=== PATIENT | female | born 2000 | race Caucasian/White ===

== ENCOUNTER 2021-02-03 04:40 | Inpatient (IN) | payer BC ==
[2021-02-03 05:00] VITALS: BMI 28.0
[2021-02-03] MEDS ORDERED: hydrALAZINE 20 MG/ML VIAL SLOW IVP PRN ×3 (06:44→17:36)
[2021-02-03] MEDS ORDERED: Promethazine HCl 25 MG/ML VIAL IM PRN ×2 (06:44→17:38)
[2021-02-03] MEDS ORDERED: Ondansetron PF 4 MG/2 ML Vial IVP PRN ×3 (06:44→17:38)
[2021-02-03] MEDS ORDERED: Lidocaine 1% (PF) 30 ML VIAL SC PRN (06:44)
[2021-02-03] MEDS ORDERED: NS w/ Oxytocin 30 units 500 ML IVPB SCH (06:45)
[2021-02-03] MEDS ORDERED: NS w/ Oxytocin 30 units 500 ML IV SCH ×2 (06:45→17:45)
[2021-02-03] MEDS ORDERED: Lactated Ringer's 1,000 ML IV SCH (06:45)
[2021-02-03] MEDS: Lactated Ringer's 1,000 ML IV SCH ×2 (07:19→13:19)
[2021-02-03 08:33] LABS: Hemoglobin 13.1 g/dL (12.0-15.5); Mean Corpuscular HGB CONC 35.9 g/dL (32.0-36.0); Mean Corpuscular Hemoglobin 31.1 pg (27.0-33.0); Mean Corpuscular Volume 86.7 fl (81.6-98.3); Mean Platelet Volume 12.6 fl (7.4-10.4); Platelet Count 194 10x3/uL (150-450); RBC Distribution Width 12.2 % (11.5-14.5); Red Blood Cell (RBC) Count 4.21 10x6/uL (3.90-5.03); White Blood Cell (WBC) Count 18.4 10x3/uL (3.5-10.5)
[2021-02-03 11:13] LABS: HIV (1/2) Antibody/Antigen Non-Reactive (NonReactive); HIV 1/2 INDEX 0.07 S/CO (<1.00)
[2021-02-03 14:06] LABS: SARS-CoV-2 NAA Rapid Test Not Detected (NotDetected)
[2021-02-03] MEDS ORDERED: Bicitra 30 ML UDCUP PO PRN (14:49)
[2021-02-03] MEDS ORDERED: Famotidine/PF 20 mg/2ml Vial SLOW IVP PRN (14:49)
[2021-02-03] MEDS ORDERED: Famotidine/PF 20 mg/2ml Vial ONE (14:57)
[2021-02-03] MEDS ORDERED: Azithromycin 500 MG VIAL ONE (14:58)
[2021-02-03] MEDS ORDERED: Azithromycin 500 MG in Sodium Chloride 0.9% 250 ML 250 ML IVPB SCH (15:00)
[2021-02-03] MEDS ORDERED: CEFAZOLIN 2 GM in Premix Bag 1 BAG IVPB SCH (15:00)
[2021-02-03] MEDS ORDERED: Morphine PF 10 MG/10 ML VIAL ONE (15:44)
[2021-02-03] MEDS ORDERED: ePHEDrine Sulfate 50 MG/10 ML VIAL ONE (15:45)
[2021-02-03] MEDS ORDERED: Fentanyl 100 MCG/2 ML VIAL ONE (15:45)
[2021-02-03] MEDS ORDERED: Oxytocin 10 UNITS/ML VIAL ONE (15:53)
[2021-02-03] MEDS ORDERED: Phenylephrine 40 MG/NS 250 ML 250 ML ONE ×2 (15:54)
[2021-02-03] MEDS ORDERED: PHENYLEPHRINE-NS 100 MCG/ML 10 ML SYRINGE ONE (16:39)
[2021-02-03] MEDS ORDERED: Ondansetron PF 4 MG/2 ML Vial ONE (16:39)
[2021-02-03] MEDS ORDERED: Ketorolac Tromethamine 30 MG/ML VIAL ONE (17:06)
[2021-02-03 17:10] LABS: RapidComm Collect By NURSE; pH (Cord, venous) 7.352 (7.250-7.350)
[2021-02-03 17:11] LABS: RapidComm Collect By NURSE
[2021-02-03] MEDS ORDERED: diphenhydrAMINE 25 MG CAP PO PRN (17:36)
[2021-02-03] MEDS ORDERED: Acetaminophen 325 MG TAB PO PRN (17:36)
[2021-02-03] MEDS ORDERED: Methylergonovine 0.2 MG/ML VIAL IM PRN (17:36)
[2021-02-03] MEDS ORDERED: Misoprostol 200 MCG TAB PR PRN (17:36)
[2021-02-03] MEDS ORDERED: Simethicone Chewable 80 MG TAB PO PRN (17:36)
[2021-02-03] MEDS ORDERED: Lanolin Ointment 7 GM TUBE TOP PRN (17:36)
[2021-02-03] MEDS ORDERED: Boostrix 0.5 ML (Tdap) VIAL IM ONE (17:36)
[2021-02-03] MEDS ORDERED: Ondansetron HCl/PF 4 MG/2 ML Vial IVP PRN (17:38)
[2021-02-03] MEDS ORDERED: diphenhydrAMINE 50 MG/ML VIAL IVP PRN (17:38)
[2021-02-03] MEDS ORDERED: Naloxone HCl 0.4 mg/ml Vial IV PRN (17:38)
[2021-02-03] MEDS ORDERED: Naloxone HCl 0.4 mg/ml Vial IVP PRN ×2 (17:38)
[2021-02-03] MEDS ORDERED: Fentanyl 100 MCG/2 ML VIAL SLOW IVP PRN (17:38)
[2021-02-03] MEDS ORDERED: Hydrocerin (Eucerin) Cream 120 gm Jar TOP PRN (17:38)
[2021-02-03] MEDS ORDERED: HYDROmorphone 2 MG/ML VIAL SLOW IVP PRN (17:38)
[2021-02-03] MEDS ORDERED: Promethazine HCl 25 MG SUPP PR PRN (17:38)
[2021-02-03] MEDS ORDERED: Meperidine HCl/PF 25 MG/ML VIAL SLOW IVP PRN (17:38)
[2021-02-03] MEDS ORDERED: Communication Order-Pharmacy FS SCH (17:45)
[2021-02-03] MEDS ORDERED: Meperidine HCl/PF 25 MG/ML VIAL ONE (19:33)
[2021-02-03] MEDS: Ferrous Sulfate 325 MG TAB PO SCH (21:58)
[2021-02-03] MEDS: Ketorolac Tromethamine 30 MG/ML VIAL IVP PRN (23:40)
[2021-02-04] MEDS: Ketorolac Tromethamine 30 MG/ML VIAL IVP PRN ×2 (05:28→14:27)
[2021-02-04] MEDS ORDERED: HYDROcodone/Acetaminophen 5/325 mg Tablet PO PRN (05:45)
[2021-02-04] MEDS ORDERED: Acetaminophen/Codeine 30-300mg Tablet PO PRN (05:45)
[2021-02-04 06:39] LABS: Hemoglobin 8.8 g/dL (12.0-15.5); Mean Corpuscular HGB CONC 33.7 g/dL (32.0-36.0); Mean Corpuscular Hemoglobin 30.4 pg (27.0-33.0); Mean Corpuscular Volume 90.3 fl (81.6-98.3); Mean Platelet Volume 11.5 fl (7.4-10.4); Platelet Count 148 10x3/uL (150-450); RBC Distribution Width 12.3 % (11.5-14.5); Red Blood Cell (RBC) Count 2.89 10x6/uL (3.90-5.03); White Blood Cell (WBC) Count 10.6 10x3/uL (3.5-10.5)
[2021-02-04] MEDS: Ferrous Sulfate 325 MG TAB PO SCH ×2 (08:46→21:17)
[2021-02-04] MEDS: Prenatal Vitamin 1 TAB PO SCH (08:46)
[2021-02-04] MEDS: Ibuprofen 800 MG TAB PO SCH (21:17)
[2021-02-05] MEDS: Ibuprofen 800 MG TAB PO SCH (05:04)
[2021-02-05] MEDS: Ferrous Sulfate 325 MG TAB PO SCH (08:45)
[2021-02-05] MEDS: Prenatal Vitamin 1 TAB PO SCH (08:45)
[2021-02-05 11:43] VITALS: BP 118/74; TEMP 98.2
== END 2021-02-05 12:13 | disposition home or self-care (01) | DRG 787 ==
LOC: CSHLD/OP 04:40 → CSHLD 10:33 → CSHPP 21:22
PROVIDERS: ADMIT Obstetrics & Gynecology; ATTEND Obstetrics & Gynecology
PROC: 10D00Z1 Extraction of Products of Conception, Low, Open Approach (ICD-10-PCS; principal; 2021-02-03)
DX: O76 Abnormality in fetal heart rate and rhythm complicating labor and delivery (principal); O41.03X0 Oligohydramnios, third trimester, not applicable or unspecified; Z3A.40 40 weeks gestation of pregnancy; Z37.0 Single live birth; Z20.822 Contact with and (suspected) exposure to COVID-19; O36.5930 Maternal care for other known or suspected poor fetal growth, third trimester, not applicable or unspecified; O69.81X0 Labor and delivery complicated by cord around neck, without compression, not applicable or unspecified; O64.0XX0 Obstructed labor due to incomplete rotation of fetal head, not applicable or unspecified; Z86.16 Personal history of COVID-19; O90.81 Anemia of the puerperium; D50.9 Iron deficiency anemia, unspecified
CPT/HCPCS: 36415; 51702; 59025; 76815; 82805; 85027; 86850; 86900; 86901; 87389; 88307; 99285; J0456; J0690; J1885; J2175; J2274; J2405; J2550; J2590; J3010; J7050; J7120; S0028; U0002